=== PATIENT | female | born 1975 | race Two or more races ===

== ENCOUNTER 2017-03-15 14:59 | Emergency (ER) | payer OTHER | END 2017-03-15 15:59 | disposition home or self-care (01) | LOC: ED 14:59 | DX: S29.012A Strain of muscle and tendon of back wall of thorax, initial encounter (principal); V44.6XXA Car passenger injured in collision with heavy transport vehicle or bus in traffic accident, initial encounter; Y92.410 Unspecified street and highway as the place of occurrence of the external cause ==